=== PATIENT | male | born 1945 | race African-American/Black ===

== ENCOUNTER 2018-10-08 10:22 | Emergency (ER) | payer BC ==
[~2018-10-08] VITALS: Ht 182.9 cm; Wt 93.0 kg
[2018-10-08] MEDS ORDERED: TAMSULOSIN HCL 0.4MG SR CAPSULE PO ONE (11:00)
[2018-10-08 11:41] LABS: CLARITY URINE CLEAR (CLEAR); COLOR URINE YELLOW (YELLOW); KETONES URINE NEGATIVE (NEGATIVE); LEUKOCYTE ESTERASE URINE NEGATIVE (NEGATIVE); NITRITE URINE NEGATIVE (NEGATIVE); OCCULT BLOOD URINE NEGATIVE (NEGATIVE); PH URINE 6.5 (4.5-8.0); PROTEIN URINE NEGATIVE (NEGATIVE); SPECIFIC GRAVITY URINE 1.017 (1.005-1.030); UROBILINOGEN URINE 0.2 E.U./dL (0.2-1.0)
[2018-10-08 12:56] VITALS: BP 158/81
== END 2018-10-08 12:59 | disposition home or self-care (01) ==
LOC: ER 10:22
DX: N40.1 Benign prostatic hyperplasia with lower urinary tract symptoms (principal); R39.15 Urgency of urination; R30.0 Dysuria; I10 Essential (primary) hypertension
CPT/HCPCS: 99283